=== PATIENT | female | born 1950 | race African-American/Black ===

== ENCOUNTER 2016-12-29 04:21 | Emergency (ER) | payer MEDICARE, OTHER ==
[2016-12-29 06:12] LABS: ABSOLUTE BASOPHILS # (AUTO) 0.1 10^3/uL (0.0-0.2); ABSOLUTE EOSINOPHILS # (AUTO) 0.1 10^3/uL (0.0-0.6); ABSOLUTE LYMPHOCYTES (AUTO) 1.8 10^3/uL (0.5-4.7); ABSOLUTE NEUT (AUTO) 7.2 10^3/uL (1.7-8.2); BASOPHILS % (AUTO) 0.9 % (0-2); EOSINOPHILS % (AUTO) 1.4 % (0-6); HEMATOCRIT 32.2 % (36.0-47.0); HEMOGLOBIN 10.4 g/dL (12.0-15.5); LYMPHOCYTES % (AUTO) 17.4 % (13-45); MEAN CORPUSCULAR HEMOGLOBIN 26.3 pg (27.0-33.4); MEAN CORPUSCULAR HGB CONC 32.2 g/dL (32.0-36.0); MEAN CORPUSCULAR VOLUME 82 fl (80-97); MONOCYTES % (AUTO) 9.8 % (3-13); RED BLOOD COUNT 3.94 10^6/uL (3.72-5.28); RED CELL DISTRIBUTION WIDTH 14.7 % (11.5-14.0); SEGMENTED NEUTROPHILS % (AUTO) 70.5 % (42-78); WHITE BLOOD COUNT 10.3 10^3/uL (4.0-10.5)
[2016-12-29 06:32] LABS: ALANINE AMINOTRANSFERASE 34 U/L (9-52); ALBUMIN 3.5 g/dL (3.5-5.0); ALKALINE PHOSPHATASE 101 U/L (38-126); ANION GAP 13 (5-19); ASPARTATE AMINO TRANSFERASE 26 U/L (14-36); BILIRUBIN,TOTAL 0.4 mg/dL (0.2-1.3); BLOOD UREA NITROGEN 18 mg/dL (7-20); CALCIUM 9.7 mg/dL (8.4-10.2); CARBON DIOXIDE 23 mmol/L (22-30); CHLORIDE 104 mmol/L (98-107); CREATINE KINASE 121 U/L (30-135); CREATININE RESULT 0.72 mg/dL (0.52-1.25); GLUCOSE 124 mg/dL (75-110); POTASSIUM 4.1 mmol/L (3.6-5.0); SODIUM 140.2 mmol/L (137-145)
[2016-12-29 06:44] LABS: CREATINE KINASE MB 5.61 ng/mL (<4.55)
[2016-12-29 06:46] LABS: TROPONIN I 0.539 ng/mL
[2016-12-29] MEDS ORDERED: NORMAL SALINE 1000 ML 1,000 ML IV ONE (06:56)
[2016-12-29] MEDS ORDERED: NORMAL SALINE 1000 ML 500 ML IV ONE (06:56)
[2016-12-29 07:09] LABS: PROTHROMBIN TIME 14.2 SEC (11.4-15.4)
[2016-12-29 07:10] LABS: PARTIAL THROMBOPLASTIN TIME 34.4 SEC (23.5-35.8)
[2016-12-29] MEDS ORDERED: HEPARIN SODIUM,PORCINE/D5W 250 ML IV PRN (08:14)
[2016-12-29] MEDS ORDERED: NITROGLYCERIN 2% OINTMENT 1 GM PACKET TP ONE (08:14)
[2016-12-29] MEDS ORDERED: HEPARIN SOD (PORCINE) 1,000 UNIT/ML 10 ML VIAL IV ONE (08:14)
[2016-12-29] MEDS ORDERED: HEPARIN SOD (PORCINE) 1,000 UNIT/ML 10 ML VIAL IV PRN (08:14)
[2016-12-29] MEDS ORDERED: MORPHINE SULFATE 10 MG/ML INJ IV ONE ×2 (09:57→11:34)
--- NOTE | 2016-12-29 10:51 | EKG REPORT ---
SEVERITY:- NORMAL ECG - SINUS RHYTHM : Confirmed by: Alex Mae 29-Dec-2016 10:49:38
--- NOTE | 2016-12-29 10:51 | EKG REPORT ---
SEVERITY:- NORMAL ECG - SINUS RHYTHM : Confirmed by: Alex Mae 29-Dec-2016 10:49:46
[2016-12-29] MEDS ORDERED: MAG HYDROX/AL HYDROX/SIMETH SUSP 30 ML UDCUP PO ONE (11:52)
[2016-12-29] MEDS ORDERED: LIDOCAINE 2% VISCOUS SOLN 20 ML UDCUP PO ONE (11:52)
[2016-12-29] MEDS ORDERED: METOCLOPRAMIDE HCL ORAL SOLN 10 MG/10 ML UDCUP PO ONE (11:52)
[2016-12-29] MEDS ORDERED: ASPIRIN 325 MG TABLET PO ONE (13:02)
[2016-12-29] MEDS ORDERED: METOPROLOL TARTRATE 25 MG TABLET PO ONE (13:18)
--- NOTE | 2016-12-29 13:20 | ER Document Report ---
ED General - General Chief Complaint: Chest Pain Stated Complaint: CHEST PAIN TRAVEL OUTSIDE OF THE [place] IN LAST 30 DAYS: No - HPI Patient complains to provider of: chest pain Notes: Patient's coming in for evaluation of chest pain. Patient has a history of uterine cancer and is being evaluated at [facility] for her cancer. Patient also states a history of hypertension. Patient states chest pain started this morning around 3 or 4:00 left side of her chest left upper back going down the left arm. Denies any nausea vomiting fevers chills. Patient's currently states chest pain-free chest pain resolved prior to my evaluation. Patient does have a history of recent surgery and of October with currently a wound VAC due to competitions of the surgery. Patient otherwise denies fevers chills patient denies any recent antibiotics. Patient is resting currently upon my evaluation. - Related Data Allergies/Adverse Reactions: No Known Allergies Allergy (Unverified 12/29/16 04:43) Home Medications: Current Home Medications Amlodipine Besylate 5 mg PO DAILY 12/29/16 [History] Famotidine 20 mg PO BID 12/29/16 [History] Hydrochlorothiazide 25 mg PO DAILY 12/29/16 [History] Loratadine [Claritin] 10 mg PO DAILY 12/29/16 [History] Meclizine HCl 25 mg PO TID 12/29/16 [History] Ondansetron [Zofran Odt] 8 mg PO Q8H 12/29/16 [History] Oxycodone HCl 5 mg PO Q4H PRN 12/29/16 [History] Prochlorperazine Maleate 10 mg PO Q6H PRN 12/29/16 [History] Past Medical History - Social History Smoking Status: Never Smoker Chew tobacco use (# tins/day): No Frequency of alcohol use: None Drug Abuse: None Family History: Reviewed & Not Pertinent Patient has suicidal ideation: No Patient has homicidal ideation: No Renal/ Medical History: Denies: Hx Peritoneal Dialysis Past Surgical History: Reports: Hx Hysterectomy Review of Systems - Review of Systems Constitutional: No symptoms reported EENT: No symptoms reported Cardiovascular: Chest pain Respiratory: No symptoms reported Gastrointestinal: No symptoms reported Genitourinary: No symptoms reported Female Genitourinary: No symptoms reported Musculoskeletal: No symptoms reported Skin: No symptoms reported Hematologic/Lymphatic: No symptoms reported Neurological/Psychological: No symptoms reported -: Yes All other systems reviewed and negative Physical Exam - Vital signs Vitals: Temp Pulse Resp BP Pulse Ox 97.9 F 86 24 H 151/92 H 97 12/29/16 04:30 12/29/16 04:30 12/29/16 04:30 12/29/16 04:30 12/29/16 04:30 Interpretation: Normal - General General appearance: Appears well, Alert - HEENT Head: Normocephalic, Atraumatic Eyes: Normal Pupils: PERRL - Respiratory Respiratory status: No respiratory distress Chest status: Nontender Breath sounds: Normal Chest palpation: Normal - Cardiovascular Rhythm: Regular Heart sounds: Normal auscultation Murmur: No - Abdominal Inspection: Normal Distension: No distension Bowel sounds: Normal Tenderness: Tender - Appropriate tenderness around surgical wound. Patient does have a wound VAC in place wound edges look well-healed Organomegaly: No organomegaly - Back Back: Normal, Tender - Tenderness to palpation along the left shoulder blade - Extremities General upper extremity: Normal inspection, Nontender, Normal color, Normal ROM , Normal temperature General lower extremity: Normal inspection, Nontender, Normal color, Normal ROM , Normal temperature, Normal weight bearing. No: Rosanna's sign - Neurological Neuro grossly intact: Yes Cognition: Normal Orientation: AAOx4 Jeevan Coma Scale Eye Opening: Spontaneous Jeevan Coma Scale Verbal: Oriented [place] Coma Scale Motor: Obeys Commands Jeevan Coma Scale Total: 15 Speech: Normal Motor strength normal: LUE, RUE, LLE, RLE Sensory: Normal - Psychological Associated symptoms: Normal affect, Normal mood - Skin Skin Temperature: Warm Skin Moisture: Dry Skin Color: Normal Course - Re-evaluation Re-evalutation: 12/29/16 13:18 Patient case was updated with Dr. Petersen cardiology at [facility]. Will continue heparin drip Nitropaste and aspirin at this time will hold off on any Plavix therapy. 12/29/16 14:34 Patient coming in for evaluation of chest pain. Initial EKG did not show any signs of acute ischemia. Patient initial troponin was elevated. This facility 0.5. Patient underwent a CTA of her chest due to recent surgery which was negative. Patient was started on a heparin drip this was preferred over Lovenox as that the patient currently has a surgical wound. Initially was given report patient received full dose aspirin upon reevaluation patient admits that she only took a baby aspirin. Therefore full aspirin therapy was initiated. After discussion with [facility] patient began to have chest pressure and not pain. Patient was given Nitropaste with no relief morphine with no relief. Patient was then given a GI cocktail with a repeat troponin showing elevation. Multiple other EKGs were performed still showing no signs of change. 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 At this time will hold off on Plavix therapy due to recent surgery. I did transition the patient over to a nitro drip patient was also given a dose of metoprolol. Upon last evaluation patient feeling much better. 12/29/16 14:35 12/29/16 15:51 Patient was reevaluated. Patient continues to be on nitro drip. EKG was repeated still showing no changes. Patient otherwise stable for transfer to [facility] - Vital Signs Vital signs: Temp Pulse Resp BP Pulse Ox 98.4 F 86 18 186/108 H 97 12/29/16 09:12 12/29/16 04:30 12/29/16 15:11 12/29/16 15:11 12/29/16 13:31 - Laboratory Result Diagrams: 12/29/16 05:52 12/29/16 05:52 Laboratory results interpreted by me: 12/29/16 12/29/16 12/29/16 05:52 05:52 05:52 Hgb 10.4 L Hct 32.2 L MCH 26.3 L RDW 14.7 H Plt Count 455 H Glucose 124 H CK-MB (CK-2) 5.61 H Critical Care Note - Critical Care Note Total time excluding time spent on procedures (mins): 35 Comments: Multiple evaluations 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
[2016-12-29] MEDS ORDERED: NITROGLYCERIN/D5W 250 ML IV PRN (13:21)
[2016-12-29] MEDS ORDERED: MORPHINE SULFATE 10 MG/ML INJ IV PRN (15:23)
[2016-12-29] MEDS ORDERED: ONDANSETRON HCL INJ/PF 4 MG/2 ML SDV IV PRN (15:23)
[2016-12-29] MEDS ORDERED: LABETALOL HCL INJ 20 MG/4 ML DISP.SYRIN IV ONE (15:26)
[2016-12-29 15:56] VITALS: BP 169/100
--- NOTE | 2016-12-30 20:07 | EKG REPORT ---
SEVERITY:- NORMAL ECG - SINUS RHYTHM : Confirmed by: Alex Mae 30-Dec-2016 20:06:41
--- NOTE | 2016-12-30 20:07 | EKG REPORT ---
SEVERITY:- NORMAL ECG - SINUS RHYTHM : Confirmed by: Alex Mae 30-Dec-2016 20:06:35
== END 2016-12-29 16:29 | disposition short-term general hospital (02) ==
LOC: ER 04:21
DX: I21.4 Non-ST elevation (NSTEMI) myocardial infarction (principal); Z85.9 Personal history of malignant neoplasm, unspecified; M54.6 Pain in thoracic spine; R07.9 Chest pain, unspecified; Z79.899 Other long term (current) drug therapy
CPT/HCPCS: 93005; 99291; 36415; 82553; 82550; 85025; 85610; 85730; 80053; 84484; 71275; 93010; J1644 ×2; A9270 ×4; J3490 ×2; J2270; J7030

== ENCOUNTER → 2017-01-25 | Outpatient (CLI) | payer MEDICARE, OTHER ==
[2017-01-25 14:40] LABS: ABSOLUTE EOSINOPHILS # (AUTO) 0.1 10^3/uL (0.0-0.6); ABSOLUTE LYMPHOCYTES (AUTO) 1.4 10^3/uL (0.5-4.7); ABSOLUTE MONOCYTES (AUTO) 0.5 10^3/uL (0.1-1.4); BASOPHILS % (AUTO) 0.5 % (0-2); EOSINOPHILS % (AUTO) 2.9 % (0-6); HEMATOCRIT 31.9 % (36.0-47.0); HEMOGLOBIN 10.4 g/dL (12.0-15.5); HGB HCT DIFFERENCE -0.7; LYMPHOCYTES % (AUTO) 46.8 % (13-45); MEAN CORPUSCULAR HGB CONC 32.6 g/dL (32.0-36.0); MEAN CORPUSCULAR VOLUME 83 fl (80-97); RED BLOOD COUNT 3.85 10^6/uL (3.72-5.28); SEGMENTED NEUTROPHILS % (AUTO) 32.8 % (42-78)
== END ==
LOC: LAB 13:53
PROVIDERS: ATTEND Obstetrics & Gynecology Gynecologic Oncology
DX: C55 Malignant neoplasm of uterus, part unspecified (principal)
CPT/HCPCS: 36415; 85025

== ENCOUNTER → 2017-02-01 | Outpatient (CLI) | payer MEDICARE, OTHER ==
[2017-02-01 12:59] LABS: ABSOLUTE BASOPHILS # (AUTO) 0.1 10^3/uL (0.0-0.2); ABSOLUTE EOSINOPHILS # (AUTO) 0.1 10^3/uL (0.0-0.6); ABSOLUTE LYMPHOCYTES (AUTO) 1.8 10^3/uL (0.5-4.7); ABSOLUTE MONOCYTES (AUTO) 1.3 10^3/uL (0.1-1.4); ABSOLUTE NEUT (AUTO) 3.9 10^3/uL (1.7-8.2); BASOPHILS % (AUTO) 0.8 % (0-2); EOSINOPHILS % (AUTO) 0.9 % (0-6); HEMOGLOBIN 10.3 g/dL (12.0-15.5); HGB HCT DIFFERENCE -0.1; LYMPHOCYTES % (AUTO) 25.5 % (13-45); MEAN CORPUSCULAR HEMOGLOBIN 27.2 pg (27.0-33.4); MEAN CORPUSCULAR HGB CONC 33.4 g/dL (32.0-36.0); MEAN CORPUSCULAR VOLUME 81 fl (80-97); MONOCYTES % (AUTO) 18.3 % (3-13); RED BLOOD COUNT 3.81 10^6/uL (3.72-5.28); RED CELL DISTRIBUTION WIDTH 16.7 % (11.5-14.0); SEGMENTED NEUTROPHILS % (AUTO) 54.5 % (42-78); WHITE BLOOD COUNT 7.2 10^3/uL (4.0-10.5)
[2017-02-01 13:16] LABS: ALANINE AMINOTRANSFERASE 38 U/L (9-52); ALKALINE PHOSPHATASE 94 U/L (38-126); ANION GAP 13 (5-19); ASPARTATE AMINO TRANSFERASE 28 U/L (14-36); BILIRUBIN,DIRECT 0.1 mg/dL (0.0-0.4); BILIRUBIN,TOTAL 0.3 mg/dL (0.2-1.3); BLOOD UREA NITROGEN 18 mg/dL (7-20); CALCIUM 9.6 mg/dL (8.4-10.2); CARBON DIOXIDE 25 mmol/L (22-30); CHLORIDE 108 mmol/L (98-107); CREATININE RESULT 0.75 mg/dL (0.52-1.25); GLUCOSE 98 mg/dL (75-110); MAGNESIUM 1.9 mg/dL (1.6-2.3); PHOSPHORUS 4.5 mg/dL (2.5-4.5); SODIUM 146.1 mmol/L (137-145); TOTAL PROTEIN 7.1 g/dL (6.3-8.2)
== END ==
LOC: LAB 12:37
PROVIDERS: ATTEND Obstetrics & Gynecology Gynecologic Oncology
DX: C55 Malignant neoplasm of uterus, part unspecified (principal)
CPT/HCPCS: 36415; 80053; 83735; 84100; 85025

== ENCOUNTER → 2017-02-15 | Outpatient (CLI) | payer MEDICARE, OTHER ==
[2017-02-15 13:24] LABS: ABSOLUTE LYMPHOCYTES (AUTO) 1.3 10^3/uL (0.5-4.7); ABSOLUTE MONOCYTES (AUTO) 0.5 10^3/uL (0.1-1.4); BASOPHILS % (AUTO) 0.3 % (0-2); EOSINOPHILS % (AUTO) 1.4 % (0-6); HEMATOCRIT 30.1 % (36.0-47.0); HEMOGLOBIN 9.9 g/dL (12.0-15.5); HGB HCT DIFFERENCE -0.4; LYMPHOCYTES % (AUTO) 44.9 % (13-45); MEAN CORPUSCULAR HEMOGLOBIN 26.5 pg (27.0-33.4); MEAN CORPUSCULAR HGB CONC 32.8 g/dL (32.0-36.0); MEAN CORPUSCULAR VOLUME 81 fl (80-97); MONOCYTES % (AUTO) 18.6 % (3-13); RED BLOOD COUNT 3.73 10^6/uL (3.72-5.28); RED CELL DISTRIBUTION WIDTH 17.3 % (11.5-14.0); SEGMENTED NEUTROPHILS % (AUTO) 34.8 % (42-78)
== END ==
LOC: LAB 13:11
PROVIDERS: ATTEND Obstetrics & Gynecology Gynecologic Oncology
DX: C55 Malignant neoplasm of uterus, part unspecified (principal)
CPT/HCPCS: 36415; 85025

== ENCOUNTER → 2017-02-22 | Outpatient (CLI) | payer MEDICARE, OTHER ==
[2017-02-22 16:27] LABS: ABSOLUTE LYMPHOCYTES (AUTO) 1.3 10^3/uL (0.5-4.7); ABSOLUTE MONOCYTES (AUTO) 0.9 10^3/uL (0.1-1.4); ABSOLUTE NEUT (AUTO) 2.5 10^3/uL (1.7-8.2); BASOPHILS % (AUTO) 0.3 % (0-2); EOSINOPHILS % (AUTO) 0.7 % (0-6); HEMATOCRIT 30.7 % (36.0-47.0); HEMOGLOBIN 9.9 g/dL (12.0-15.5); MEAN CORPUSCULAR HEMOGLOBIN 26.4 pg (27.0-33.4); MEAN CORPUSCULAR HGB CONC 32.3 g/dL (32.0-36.0); MEAN CORPUSCULAR VOLUME 82 fl (80-97); MONOCYTES % (AUTO) 19.1 % (3-13); RED BLOOD COUNT 3.75 10^6/uL (3.72-5.28); RED CELL DISTRIBUTION WIDTH 18.5 % (11.5-14.0); SEGMENTED NEUTROPHILS % (AUTO) 52.9 % (42-78); WHITE BLOOD COUNT 4.8 10^3/uL (4.0-10.5)
[2017-02-22 16:44] LABS: ALANINE AMINOTRANSFERASE 48 U/L (9-52); ALBUMIN 4.1 g/dL (3.5-5.0); ALKALINE PHOSPHATASE 115 U/L (38-126); ANION GAP 15 (5-19); ASPARTATE AMINO TRANSFERASE 39 U/L (14-36); BILIRUBIN,DIRECT 0.2 mg/dL (0.0-0.4); BILIRUBIN,TOTAL 0.3 mg/dL (0.2-1.3); BLOOD UREA NITROGEN 23 mg/dL (7-20); CALCIUM 9.8 mg/dL (8.4-10.2); CARBON DIOXIDE 20 mmol/L (22-30); CHLORIDE 106 mmol/L (98-107); CREATININE RESULT 1.32 mg/dL (0.52-1.25); GLUCOSE 117 mg/dL (75-110); MAGNESIUM 1.4 mg/dL (1.6-2.3); PHOSPHORUS 4.5 mg/dL (2.5-4.5); POTASSIUM 4.8 mmol/L (3.6-5.0); SODIUM 140.8 mmol/L (137-145); TOTAL PROTEIN 7.6 g/dL (6.3-8.2)
== END ==
LOC: LAB 16:05
PROVIDERS: ATTEND Obstetrics & Gynecology Gynecologic Oncology
DX: C55 Malignant neoplasm of uterus, part unspecified (principal)
CPT/HCPCS: 36415; 80053; 83735; 84100; 85025

== ENCOUNTER → 2017-03-01 | Outpatient (CLI) | payer MEDICARE, OTHER ==
[2017-03-01 12:27] LABS: ABSOLUTE EOSINOPHILS # (AUTO) 0.1 10^3/uL (0.0-0.6); ABSOLUTE LYMPHOCYTES (AUTO) 1.4 10^3/uL (0.5-4.7); ABSOLUTE MONOCYTES (AUTO) 0.2 10^3/uL (0.1-1.4); ABSOLUTE NEUT (AUTO) 1.4 10^3/uL (1.7-8.2); BASOPHILS % (AUTO) 0.5 % (0-2); HEMATOCRIT 31.8 % (36.0-47.0); HEMOGLOBIN 10.6 g/dL (12.0-15.5); LYMPHOCYTES % (AUTO) 45.8 % (13-45); MEAN CORPUSCULAR HGB CONC 33.3 g/dL (32.0-36.0); MEAN CORPUSCULAR VOLUME 81 fl (80-97); MONOCYTES % (AUTO) 5.6 % (3-13); RED BLOOD COUNT 3.92 10^6/uL (3.72-5.28); SEGMENTED NEUTROPHILS % (AUTO) 46.1 % (42-78)
== END ==
LOC: LAB 12:13
PROVIDERS: ATTEND Obstetrics & Gynecology Gynecologic Oncology
DX: C55 Malignant neoplasm of uterus, part unspecified (principal); Z92.21 Personal history of antineoplastic chemotherapy
CPT/HCPCS: 36415; 85025

== ENCOUNTER → 2017-03-08 | Outpatient (CLI) | payer MEDICARE, OTHER ==
[2017-03-08 15:56] LABS: ABSOLUTE LYMPHOCYTES (AUTO) 1.9 10^3/uL (0.5-4.7); ABSOLUTE MONOCYTES (AUTO) 0.6 10^3/uL (0.1-1.4); BASOPHILS % (AUTO) 0.3 % (0-2); EOSINOPHILS % (AUTO) 0.9 % (0-6); HEMOGLOBIN 10.2 g/dL (12.0-15.5); HGB HCT DIFFERENCE -1.4; MEAN CORPUSCULAR HEMOGLOBIN 26.7 pg (27.0-33.4); MEAN CORPUSCULAR VOLUME 84 fl (80-97); RED BLOOD COUNT 3.83 10^6/uL (3.72-5.28); RED CELL DISTRIBUTION WIDTH 18.2 % (11.5-14.0); SEGMENTED NEUTROPHILS % (AUTO) 28.8 % (42-78); WHITE BLOOD COUNT 3.5 10^3/uL (4.0-10.5)
== END ==
LOC: LAB 15:20
PROVIDERS: ATTEND Obstetrics & Gynecology Gynecologic Oncology
DX: C55 Malignant neoplasm of uterus, part unspecified (principal)
CPT/HCPCS: 36415; 85025

== ENCOUNTER → 2017-03-15 | Outpatient (CLI) | payer MEDICARE, OTHER ==
[2017-03-15 09:15] LABS: HEMATOCRIT 29.8 % (36.0-47.0); HEMOGLOBIN 9.7 g/dL (12.0-15.5); HGB HCT DIFFERENCE -0.7; MEAN CORPUSCULAR HGB CONC 32.6 g/dL (32.0-36.0); MEAN CORPUSCULAR VOLUME 83 fl (80-97); RED BLOOD COUNT 3.61 10^6/uL (3.72-5.28); WHITE BLOOD COUNT 4.1 10^3/uL (4.0-10.5)
[2017-03-15 09:33] LABS: ALANINE AMINOTRANSFERASE 41 U/L (9-52); ALBUMIN 3.9 g/dL (3.5-5.0); ALKALINE PHOSPHATASE 96 U/L (38-126); ANION GAP 13 (5-19); ASPARTATE AMINO TRANSFERASE 31 U/L (14-36); BILIRUBIN,DIRECT 0.2 mg/dL (0.0-0.4); BILIRUBIN,TOTAL 0.2 mg/dL (0.2-1.3); BLOOD UREA NITROGEN 15 mg/dL (7-20); CALCIUM 9.5 mg/dL (8.4-10.2); CARBON DIOXIDE 24 mmol/L (22-30); CHLORIDE 108 mmol/L (98-107); CREATININE RESULT 0.83 mg/dL (0.52-1.25); GLUCOSE 89 mg/dL (75-110); MAGNESIUM 1.3 mg/dL (1.6-2.3); PHOSPHORUS 3.9 mg/dL (2.5-4.5); POTASSIUM 3.6 mmol/L (3.6-5.0); SODIUM 145.3 mmol/L (137-145); TOTAL PROTEIN 6.9 g/dL (6.3-8.2)
[2017-03-15 09:54] LABS: BASOPHILS % (MANUAL) 0 % (0-2); EOSINOPHILS % (MANUAL) 0 % (0-6); LYMPHOCYTES % (MANUAL) 39 % (13-45); TOTAL CELLS COUNTED 100
[2017-03-15 09:55] LABS: ANISOCYTOSIS 2+; POLYCHROMASIA SLIGHT
== END ==
LOC: LAB 08:54
PROVIDERS: ATTEND Obstetrics & Gynecology Gynecologic Oncology
DX: C55 Malignant neoplasm of uterus, part unspecified (principal)
CPT/HCPCS: 36415; 80053; 83735; 84100; 85025

== ENCOUNTER → 2017-03-22 | Outpatient (CLI) | payer MEDICARE, OTHER ==
[2017-03-22 12:50] LABS: ABSOLUTE LYMPHOCYTES (AUTO) 1.4 10^3/uL (0.5-4.7); ABSOLUTE MONOCYTES (AUTO) 0.4 10^3/uL (0.1-1.4); ABSOLUTE NEUT (AUTO) 2.7 10^3/uL (1.7-8.2); BASOPHILS % (AUTO) 0.5 % (0-2); EOSINOPHILS % (AUTO) 0.1 % (0-6); HEMATOCRIT 29.1 % (36.0-47.0); HEMOGLOBIN 9.4 g/dL (12.0-15.5); HGB HCT DIFFERENCE -0.9; LYMPHOCYTES % (AUTO) 29.9 % (13-45); MEAN CORPUSCULAR HEMOGLOBIN 27.5 pg (27.0-33.4); MEAN CORPUSCULAR HGB CONC 32.4 g/dL (32.0-36.0); MEAN CORPUSCULAR VOLUME 85 fl (80-97); MONOCYTES % (AUTO) 9.6 % (3-13); RED BLOOD COUNT 3.43 10^6/uL (3.72-5.28); RED CELL DISTRIBUTION WIDTH 20.4 % (11.5-14.0); SEGMENTED NEUTROPHILS % (AUTO) 59.9 % (42-78); WHITE BLOOD COUNT 4.6 10^3/uL (4.0-10.5)
== END ==
LOC: LAB 12:34
PROVIDERS: ATTEND Obstetrics & Gynecology Gynecologic Oncology
DX: C55 Malignant neoplasm of uterus, part unspecified (principal)
CPT/HCPCS: 36415; 85025

== ENCOUNTER → 2017-03-29 | Outpatient (CLI) | payer MEDICARE, OTHER ==
[2017-03-29 14:35] LABS: HEMATOCRIT 32.2 % (36.0-47.0); HEMOGLOBIN 10.7 g/dL (12.0-15.5); HGB HCT DIFFERENCE -0.1; MEAN CORPUSCULAR HGB CONC 33.3 g/dL (32.0-36.0); MEAN CORPUSCULAR VOLUME 84 fl (80-97); RED BLOOD COUNT 3.83 10^6/uL (3.72-5.28); RED CELL DISTRIBUTION WIDTH 19.8 % (11.5-14.0); WHITE BLOOD COUNT 2.4 10^3/uL (4.0-10.5)
[2017-03-29 15:07] LABS: BASOPHILS % (MANUAL) 0 % (0-2); EOSINOPHILS % (MANUAL) 0 % (0-6); LYMPHOCYTES % (MANUAL) 58 % (13-45); NUCLEATED RED BLOOD CELLS 2 /100 WBC (0); TOTAL CELLS COUNTED 100
[2017-03-29 15:14] LABS: ANISOCYTOSIS 2+; OVALOCYTES SLIGHT; POLYCHROMASIA SLIGHT; TARGET CELLS SLIGHT; TEAR DROP CELLS SLIGHT
[2017-03-29 15:15] LABS: PLATELET CLUMPS PRESENT
== END ==
LOC: LAB 14:18
PROVIDERS: ATTEND Obstetrics & Gynecology Gynecologic Oncology
DX: C55 Malignant neoplasm of uterus, part unspecified (principal)
CPT/HCPCS: 36415; 85025

== ENCOUNTER → 2017-04-05 | Outpatient (CLI) | payer MEDICARE, OTHER ==
[2017-04-05 16:27] LABS: HEMATOCRIT 35.4 % (36.0-47.0); HEMOGLOBIN 11.3 g/dL (12.0-15.5); HGB HCT DIFFERENCE -1.5; MEAN CORPUSCULAR HEMOGLOBIN 27.8 pg (27.0-33.4); MEAN CORPUSCULAR VOLUME 87 fl (80-97); RED BLOOD COUNT 4.08 10^6/uL (3.72-5.28); RED CELL DISTRIBUTION WIDTH 21.7 % (11.5-14.0); WHITE BLOOD COUNT 3.9 10^3/uL (4.0-10.5)
[2017-04-05 16:43] LABS: ALANINE AMINOTRANSFERASE 38 U/L (9-52); ALBUMIN 4.1 g/dL (3.5-5.0); ALKALINE PHOSPHATASE 75 U/L (38-126); ANION GAP 13 (5-19); ASPARTATE AMINO TRANSFERASE 28 U/L (14-36); BILIRUBIN,DIRECT 0.3 mg/dL (0.0-0.4); BILIRUBIN,TOTAL 0.3 mg/dL (0.2-1.3); BLOOD UREA NITROGEN 15 mg/dL (7-20); CALCIUM 9.9 mg/dL (8.4-10.2); CARBON DIOXIDE 27 mmol/L (22-30); CHLORIDE 105 mmol/L (98-107); CREATININE RESULT 0.86 mg/dL (0.52-1.25); GLUCOSE 90 mg/dL (75-110); MAGNESIUM 1.4 mg/dL (1.6-2.3); SODIUM 144.5 mmol/L (137-145); TOTAL PROTEIN 7.6 g/dL (6.3-8.2)
[2017-04-05 16:47] LABS: BASOPHILS % (MANUAL) 0 % (0-2); EOSINOPHILS % (MANUAL) 0 % (0-6); LYMPHOCYTES % (MANUAL) 45 % (13-45); TOTAL CELLS COUNTED 100
[2017-04-05 16:51] LABS: ANISOCYTOSIS 3+; OVALOCYTES SLIGHT; PLATELET CLUMPS PRESENT; POIKILOCYTOSIS SLIGHT; POLYCHROMASIA SLIGHT; TARGET CELLS SLIGHT; TEAR DROP CELLS SLIGHT
== END ==
LOC: LAB 16:15
PROVIDERS: ATTEND Obstetrics & Gynecology Gynecologic Oncology
DX: C55 Malignant neoplasm of uterus, part unspecified (principal)
CPT/HCPCS: 36415; 80053; 83735; 84100; 85025

== ENCOUNTER → 2017-04-08 | Outpatient (CLI) | payer MEDICARE, OTHER ==
[2017-04-08 14:38] LABS: ABSOLUTE LYMPHOCYTES (AUTO) 1.6 10^3/uL (0.5-4.7); ABSOLUTE MONOCYTES (AUTO) 0.8 10^3/uL (0.1-1.4); ABSOLUTE NEUT (AUTO) 1.7 10^3/uL (1.7-8.2); BASOPHILS % (AUTO) 0.3 % (0-2); EOSINOPHILS % (AUTO) 0.4 % (0-6); HEMOGLOBIN 11.2 g/dL (12.0-15.5); HGB HCT DIFFERENCE -1.4; LYMPHOCYTES % (AUTO) 39.8 % (13-45); MEAN CORPUSCULAR HEMOGLOBIN 27.9 pg (27.0-33.4); MEAN CORPUSCULAR HGB CONC 32.1 g/dL (32.0-36.0); MEAN CORPUSCULAR VOLUME 87 fl (80-97); RED BLOOD COUNT 4.03 10^6/uL (3.72-5.28); RED CELL DISTRIBUTION WIDTH 22.1 % (11.5-14.0); SEGMENTED NEUTROPHILS % (AUTO) 40.5 % (42-78); WHITE BLOOD COUNT 4.1 10^3/uL (4.0-10.5)
[2017-04-08 15:06] LABS: ALANINE AMINOTRANSFERASE 34 U/L (9-52); ALBUMIN 4.4 g/dL (3.5-5.0); ALKALINE PHOSPHATASE 81 U/L (38-126); ANION GAP 16 (5-19); ASPARTATE AMINO TRANSFERASE 30 U/L (14-36); BILIRUBIN,DIRECT 0.3 mg/dL (0.0-0.4); BILIRUBIN,TOTAL 0.4 mg/dL (0.2-1.3); BLOOD UREA NITROGEN 26 mg/dL (7-20); CALCIUM 10.2 mg/dL (8.4-10.2); CARBON DIOXIDE 22 mmol/L (22-30); CHLORIDE 105 mmol/L (98-107); CREATININE RESULT 0.88 mg/dL (0.52-1.25); GLUCOSE 92 mg/dL (75-110); MAGNESIUM 1.4 mg/dL (1.6-2.3); PHOSPHORUS 5.7 mg/dL (2.5-4.5); POTASSIUM 4.6 mmol/L (3.6-5.0); TOTAL PROTEIN 8.1 g/dL (6.3-8.2)
== END ==
LOC: LAB 14:19
PROVIDERS: ATTEND Obstetrics & Gynecology Gynecologic Oncology
DX: C55 Malignant neoplasm of uterus, part unspecified (principal)
CPT/HCPCS: 36415; 80053; 83735; 84100; 85025

== ENCOUNTER → 2017-04-12 | Outpatient (CLI) | payer MEDICARE, OTHER ==
[2017-04-12 13:40] LABS: ABSOLUTE LYMPHOCYTES (AUTO) 1.3 10^3/uL (0.5-4.7); ABSOLUTE MONOCYTES (AUTO) 0.1 10^3/uL (0.1-1.4); ABSOLUTE NEUT (AUTO) 1.7 10^3/uL (1.7-8.2); BASOPHILS % (AUTO) 1.2 % (0-2); EOSINOPHILS % (AUTO) 0.5 % (0-6); HEMATOCRIT 31.7 % (36.0-47.0); HEMOGLOBIN 10.3 g/dL (12.0-15.5); HGB HCT DIFFERENCE -0.8; LYMPHOCYTES % (AUTO) 41.6 % (13-45); MEAN CORPUSCULAR HEMOGLOBIN 28.3 pg (27.0-33.4); MEAN CORPUSCULAR HGB CONC 32.5 g/dL (32.0-36.0); MEAN CORPUSCULAR VOLUME 87 fl (80-97); MONOCYTES % (AUTO) 4.5 % (3-13); RED BLOOD COUNT 3.65 10^6/uL (3.72-5.28); SEGMENTED NEUTROPHILS % (AUTO) 52.2 % (42-78); WHITE BLOOD COUNT 3.2 10^3/uL (4.0-10.5)
== END ==
LOC: LAB 13:25
PROVIDERS: ATTEND Obstetrics & Gynecology Gynecologic Oncology
DX: C55 Malignant neoplasm of uterus, part unspecified (principal)
CPT/HCPCS: 36415; 85025

== ENCOUNTER → 2017-04-22 | Outpatient (CLI) | payer MEDICARE, OTHER ==
[2017-04-22 11:02] LABS: HEMATOCRIT 30.1 % (36.0-47.0); HEMOGLOBIN 9.6 g/dL (12.0-15.5); HGB HCT DIFFERENCE -1.3; MEAN CORPUSCULAR HEMOGLOBIN 28.4 pg (27.0-33.4); MEAN CORPUSCULAR HGB CONC 31.9 g/dL (32.0-36.0); MEAN CORPUSCULAR VOLUME 89 fl (80-97); RED BLOOD COUNT 3.38 10^6/uL (3.72-5.28); RED CELL DISTRIBUTION WIDTH 21.5 % (11.5-14.0); WHITE BLOOD COUNT 2.6 10^3/uL (4.0-10.5)
[2017-04-22 11:43] LABS: BASOPHILS % (MANUAL) 0 % (0-2); EOSINOPHILS % (MANUAL) 0 % (0-6); LYMPHOCYTES % (MANUAL) 40 % (13-45); NUCLEATED RED BLOOD CELLS 3 /100 WBC (0); TOTAL CELLS COUNTED 100
[2017-04-22 11:48] LABS: ANISOCYTOSIS 3+; OVALOCYTES SLIGHT; PLATELET CLUMPS PRESENT; POLYCHROMASIA SLIGHT; TEAR DROP CELLS SLIGHT; TOXIC GRANULATION SLIGHT
[2017-04-22 11:50] LABS: POIKILOCYTOSIS SLIGHT
[2017-04-24 16:25] LABS: PATH REVIEW PATHOLOGIST REVIEWED
== END ==
LOC: LAB 10:42
PROVIDERS: ATTEND Obstetrics & Gynecology Gynecologic Oncology
DX: C55 Malignant neoplasm of uterus, part unspecified (principal)
CPT/HCPCS: 36415; 85025

== ENCOUNTER → 2017-04-29 | Outpatient (CLI) | payer MEDICARE, OTHER ==
[2017-04-29 10:41] LABS: ABSOLUTE LYMPHOCYTES (AUTO) 1.4 10^3/uL (0.5-4.7); ABSOLUTE MONOCYTES (AUTO) 0.7 10^3/uL (0.1-1.4); ABSOLUTE NEUT (AUTO) 2.2 10^3/uL (1.7-8.2); BASOPHILS % (AUTO) 0.9 % (0-2); EOSINOPHILS % (AUTO) 0.1 % (0-6); HEMATOCRIT 31.3 % (36.0-47.0); HEMOGLOBIN 10.1 g/dL (12.0-15.5); MEAN CORPUSCULAR HGB CONC 32.2 g/dL (32.0-36.0); MEAN CORPUSCULAR VOLUME 90 fl (80-97); RED BLOOD COUNT 3.47 10^6/uL (3.72-5.28); RED CELL DISTRIBUTION WIDTH 21.7 % (11.5-14.0); WHITE BLOOD COUNT 4.3 10^3/uL (4.0-10.5)
[2017-04-29 10:49] LABS: ALANINE AMINOTRANSFERASE 43 U/L (9-52); ALKALINE PHOSPHATASE 80 U/L (38-126); ANION GAP 13 (5-19); ASPARTATE AMINO TRANSFERASE 33 U/L (14-36); BILIRUBIN,DIRECT 0.3 mg/dL (0.0-0.4); BILIRUBIN,TOTAL 0.3 mg/dL (0.2-1.3); BLOOD UREA NITROGEN 14 mg/dL (7-20); CALCIUM 9.5 mg/dL (8.4-10.2); CARBON DIOXIDE 23 mmol/L (22-30); CHLORIDE 106 mmol/L (98-107); CREATININE RESULT 0.71 mg/dL (0.52-1.25); GLUCOSE 105 mg/dL (75-110); MAGNESIUM 1.3 mg/dL (1.6-2.3); PHOSPHORUS 3.8 mg/dL (2.5-4.5); POTASSIUM 3.9 mmol/L (3.6-5.0); SODIUM 141.6 mmol/L (137-145); TOTAL PROTEIN 7.4 g/dL (6.3-8.2)
== END ==
LOC: LAB 10:11
PROVIDERS: ATTEND Obstetrics & Gynecology Gynecologic Oncology
DX: C55 Malignant neoplasm of uterus, part unspecified (principal)
CPT/HCPCS: 36415; 80053; 83735; 84100; 85025

== ENCOUNTER → 2017-07-19 | Outpatient (CLI) | payer MEDICARE, OTHER ==
[2017-07-19 10:52] LABS: ABSOLUTE EOSINOPHILS # (AUTO) 0.1 10^3/uL (0.0-0.6); ABSOLUTE LYMPHOCYTES (AUTO) 1.4 10^3/uL (0.5-4.7); ABSOLUTE MONOCYTES (AUTO) 0.9 10^3/uL (0.1-1.4); ABSOLUTE NEUT (AUTO) 3.4 10^3/uL (1.7-8.2); BASOPHILS % (AUTO) 0.7 % (0-2); EOSINOPHILS % (AUTO) 1.3 % (0-6); HEMOGLOBIN 12.4 g/dL (12.0-15.5); HGB HCT DIFFERENCE 1.2; LYMPHOCYTES % (AUTO) 24.5 % (13-45); MEAN CORPUSCULAR HEMOGLOBIN 32.4 pg (27.0-33.4); MEAN CORPUSCULAR HGB CONC 34.3 g/dL (32.0-36.0); MEAN CORPUSCULAR VOLUME 95 fl (80-97); MONOCYTES % (AUTO) 14.7 % (3-13); RED BLOOD COUNT 3.81 10^6/uL (3.72-5.28); RED CELL DISTRIBUTION WIDTH 15.8 % (11.5-14.0); SEGMENTED NEUTROPHILS % (AUTO) 58.8 % (42-78); WHITE BLOOD COUNT 5.8 10^3/uL (4.0-10.5)
[2017-07-19 11:00] LABS: ABSOLUTE EOSINOPHILS # (AUTO) 0.1 10^3/uL (0.0-0.6); ABSOLUTE LYMPHOCYTES (AUTO) 1.4 10^3/uL (0.5-4.7); ABSOLUTE MONOCYTES (AUTO) 0.9 10^3/uL (0.1-1.4); ABSOLUTE NEUT (AUTO) 3.4 10^3/uL (1.7-8.2); BASOPHILS % (AUTO) 0.7 % (0-2); EOSINOPHILS % (AUTO) 1.3 % (0-6); HEMOGLOBIN 12.4 g/dL (12.0-15.5); HGB HCT DIFFERENCE 1.2; LYMPHOCYTES % (AUTO) 24.5 % (13-45); MEAN CORPUSCULAR HEMOGLOBIN 32.4 pg (27.0-33.4); MEAN CORPUSCULAR HGB CONC 34.3 g/dL (32.0-36.0); MEAN CORPUSCULAR VOLUME 95 fl (80-97); MONOCYTES % (AUTO) 14.7 % (3-13); RED BLOOD COUNT 3.81 10^6/uL (3.72-5.28); RED CELL DISTRIBUTION WIDTH 15.8 % (11.5-14.0); SEGMENTED NEUTROPHILS % (AUTO) 58.8 % (42-78); WHITE BLOOD COUNT 5.8 10^3/uL (4.0-10.5)
[2017-07-19 11:16] LABS: ALANINE AMINOTRANSFERASE 36 U/L (9-52); ALBUMIN 4.2 g/dL (3.5-5.0); ALKALINE PHOSPHATASE 85 U/L (38-126); ANION GAP 11 (5-19); ASPARTATE AMINO TRANSFERASE 26 U/L (14-36); BILIRUBIN,DIRECT 0.4 mg/dL (0.0-0.4); BILIRUBIN,TOTAL 0.5 mg/dL (0.2-1.3); BLOOD UREA NITROGEN 15 mg/dL (7-20); CALCIUM 10.2 mg/dL (8.4-10.2); CARBON DIOXIDE 26 mmol/L (22-30); CHLORIDE 105 mmol/L (98-107); CHOLESTEROL 215.43 mg/dL (0-200); CREATININE RESULT 0.82 mg/dL (0.52-1.25); Direct HDL 48 mg/dL (>40); GLUCOSE 97 mg/dL (75-110); POTASSIUM 4.5 mmol/L (3.6-5.0); SODIUM 142.4 mmol/L (137-145); TOTAL PROTEIN 7.8 g/dL (6.3-8.2); TRIGLYCERIDES 101 mg/dL (<150)
[2017-07-19 11:32] LABS: DIRECT LDL 154 mg/dL (<100)
[2017-07-19 12:24] LABS: APPEARANCE,URINE SLIGHTLY-CLOUDY; BILIRUBIN,URINE NEGATIVE (NEGATIVE); GLUCOSE, URINE NEGATIVE (NEGATIVE); KETONES,URINE NEGATIVE (NEGATIVE); LEUKOCYTE ESTERASE,URINE NEGATIVE (NEGATIVE); NITRITE,URINE NEGATIVE (NEGATIVE); PROTEIN,URINE NEGATIVE (NEGATIVE); URINE SPECIFIC GRAVITY 1.014; UROBILINOGEN,URINE NEGATIVE mg/dL (<2.0)
== END ==
LOC: LAB 10:23
PROVIDERS: ATTEND Obstetrics & Gynecology Gynecologic Oncology
DX: E78.5 Hyperlipidemia, unspecified (principal); I10 Essential (primary) hypertension; N39.0 Urinary tract infection, site not specified; C55 Malignant neoplasm of uterus, part unspecified
CPT/HCPCS: 36415; 80053; 80061; 81001; 85025; 87086

== ENCOUNTER → 2017-07-22 | Outpatient (CLI) | payer MEDICARE, OTHER ==
--- NOTE | 2017-07-22 15:54 | WOMENS IMAGING REPORT ---
EXAM DESCRIPTION: 3D SCREENING MAMMO BILAT COMPLETED DATE/TIME: 07/22/2017 3:06 pm REASON FOR STUDY: ROUTINE SCREENING; Z12.31 Z12.31 ENCNTR SCREEN MAMMOGRAM FOR MALIGNANT NEOPLASM O F [place] COMPARISON: 2010, 2013 TECHNIQUE: Standard craniocaudal and mediolateral oblique views of each breast recorded using digita l acquisition and breast tomosynthesis. LIMITATIONS: None. FINDINGS: No masses, calcifications or architectural distortion. No areas of suspicion. Read with the assistance of CAD. .[facility] - R2 [employer] Version 1.3 .[facility] Imaging - R2 Cenova Version 1.3 .[facility] - R2 Cenova Version 2.4 .[facility] [place] R2 Cenova Version 2.4 .[facility] - R2 [employer] Ce[employer] President Version 9.2 IMPRESSION: NORMAL MAMMOGRAM. BIRADS 1. BREAST DENSITY: b. There are scattered areas of fibroglandular density. BIRAD: 1 NEGATIVE RECOMMENDATION: ROUTINE SCREENING COMMENT: The patient has been notified of the results by letter per SA requirements. Additional no tification policies are in place for contacting patient with suspicious or incomplete findings. Quality ID #[id number]: The [employer] recommends an annual screening mammogram for women aged 40 years or over. This facility utilizes a reminder system to ensure that all patients receive reminder letters, and/or direct phone calls for appointments. This includes reminders for routine scr eening mammograms, diagnostic mammograms, or other Breast Imaging Interventions when appropriate. Th is patient will be placed in the appropriate reminder system. The [employer] (ACR) has developed recommendations for screening MRI of the breast s in certain patient populations, to be used in conjunction with mammography. Breast MRI surveillanc e may be appropriate for women with more than 20% lifetime risk of developing breast cancer as deter mined by genetic testing, significant family history of the disease, or history of mantle radiation f or Hodgkins Disease. ACR Practice Guidelines 2008. DBT Technology DBT is a type of tomographic mammography. With conventional mammography, overlapping breast tissue ma y make lesions difficult to detect, even with good compression. DBT uses an x-ray tube that rotates a round the breast, taking images at different angles. These images are then combined to create thin sl ices of the breast that the radiologist can view as a 3D reconstruction. The [employer] unit can perform full-field digital mammograms (2D imaging); or DBT (3D imaging); or both, in a combination mode that quickly performs both the mammogram and the tomosynthesis scan while the breast is still compressed. PQRS 6045F: Fluoroscopic imaging is not utilized for breast tomosynthesis. TECHNICAL DOCUMENTATION: FINDING NUMBER: (1) ASSESSMENT: (1) JOB ID: [id number] [employer]- All Rights Reserved
== END ==
LOC: WI 14:46
PROVIDERS: ATTEND Internal Medicine Geriatric Medicine
DX: Z12.31 Encounter for screening mammogram for malignant neoplasm of breast (principal)
CPT/HCPCS: 77063; G0202; 77067

== ENCOUNTER 2017-11-09 09:57 | Emergency (ER) | payer MEDICARE, OTHER ==
[2017-11-09] MEDS ORDERED: DEXTROSE 5%-WATER 1000 ML 1,000 ML IV ONE (11:36)
[2017-11-09] MEDS ORDERED: ALPRAZOLAM 0.25 MG TABLET PO ONE (11:42)
--- NOTE | 2017-11-09 11:43 | ER Document Report ---
ED General - General Chief Complaint: Breathing Difficulty Stated Complaint: BLOOD SUGAR PROBLEMS Time Seen by Provider: 11/09/17 10:49 Information source: Patient, Relative - sister Karena Norton TRAVEL OUTSIDE OF THE [place] IN LAST 30 DAYS: No - HPI Patient complains to provider of: anxiety - Related Data Allergies/Adverse Reactions: tree nut Allergy (Verified 11/09/17 10:17) Past Medical History - General Information source: Patient, Relative - Social History Smoking Status: Never Smoker Chew tobacco use (# tins/day): No Frequency of alcohol use: None Drug Abuse: None Family History: Reviewed & Not Pertinent Patient has suicidal ideation: No Patient has homicidal ideation: No - Past Medical History Cardiac Medical History: Reports: Hx Hypertension Pulmonary Medical History: Reports: None EENT Medical History: Reports: None Neurological Medical History: Reports: None Endocrine Medical History: Reports: None Renal/ Medical History: Reports: None. Denies: Hx Peritoneal Dialysis Malignancy Medical History: Reports: Other - Uterine GI Medical History: Reports: None Past Surgical History: Reports: Hx Hysterectomy, Other - Port to the abdominal wall Review of Systems - Review of Systems -: Yes ROS unobtainable due to patient's medical condition Gastrointestinal: Abdomen distended, Abdominal pain Physical Exam - Vital signs Vitals: BP 138/89 H 11/09/17 10:04 - Notes Notes: PHYSICAL EXAMINATION: GENERAL: She appears chronically ill, malnourished, in mild distress. HEAD: Atraumatic, normocephalic. EYES: Pupils equal round and reactive to light, extraocular movements intact, conjunctiva are normal. ENT: Nares patent. Dry mucous membranes. NECK: Normal range of motion, supple without lymphadenopathy LUNGS: Breath sounds clear to auscultation bilaterally and equal. No wheezes rales or rhonchi. HEART: Regular rate and rhythm without murmurs ABDOMEN: Tended with ascites no guarding, no rebound. Female : deferred Musculoskeletal: Moves all extremities spontaneously NEUROLOGICAL: Cranial nerves grossly intact. Normal speech. PSYCH: Normal mood, flat affect. SKIN: Warm decreased skin turgor. No open wounds. Course - Re-evaluation Re-evalutation: 11/09/17 11:41 Patient was alert and oriented 3. Vital signs are stable. I did discuss end- of-life status and she does not want CPR or intubation.I did make her a DNR filled out the form and gave it to her sister for now. Karena as well as 3 other relatives were in the room and were present when I made the patient DNR. 11/09/17 11:43 Patient sister Karena did request that we drain the fluid off of her stomach. She does have a catheter in Karena does it every other day. Today's date have it done. I discussed it with the nurse and she will complete this 11/09/17 14:03 Patient is in pain she is asking for pain medication. She states she takes "oxy " but not sure which kind she does not have it in her medicine bag from home. Her that for her. She is also got some fluids and magnesium. We did drain 300 cc of fluid from her catheter in her abdomen. For now the sister is agreeable to taking home. She has a nurse that she can contact if she needs. She also has hospice coming in Saturday. There is also 5 other women in the room were also related to her and her helping with care. - Vital Signs Vital signs: Temp Pulse Resp BP Pulse Ox 97.7 F 26 H 123/72 100 11/09/17 10:19 11/09/17 13:00 11/09/17 13:00 11/09/17 13:00 - Laboratory Result Diagrams: 11/09/17 10:07 Laboratory results interpreted by me: 11/09/17 10:07 Carbon Dioxide 15 L Calcium 7.4 L Magnesium 1.3 L Discharge - Discharge Clinical Impression: Uterine cancer Condition: Fair Disposition: HOME, SELF-CARE Additional Instructions: Follow-up the hospice nurse on Saturday we discussed. Prescriptions: Alprazolam [Alprazolam Odt] 0.25 mg PO TID 2 Days #10 [email or web address]
[2017-11-09 12:16] LABS: ANION GAP 19 (5-19); BLOOD UREA NITROGEN 17 mg/dL (7-20); CALCIUM 7.4 mg/dL (8.4-10.2); CARBON DIOXIDE 15 mmol/L (22-30); CHLORIDE 104 mmol/L (98-107); GLUCOSE 93 mg/dL (75-110); MAGNESIUM 1.3 mg/dL (1.6-2.3); POTASSIUM 4.3 mmol/L (3.6-5.0); SODIUM 138.3 mmol/L (137-145)
[2017-11-09] MEDS ORDERED: MAGNESIUM SULFATE/D5W 1 GM/100 ML RTUPB IV SCH (13:00)
[2017-11-09] MEDS ORDERED: OXYCODONE HCL IR 5 MG TABLET PO ONE (14:02)
[2017-11-09] MEDS ORDERED: ONDANSETRON HCL INJ/PF 4 MG/2 ML SDV IV ONE (14:28)
[2017-11-09 17:31] VITALS: BP 124/93
== END 2017-11-09 17:31 | disposition home or self-care (01) ==
LOC: ER 09:57
DX: C55 Malignant neoplasm of uterus, part unspecified (principal); R06.02 Shortness of breath
CPT/HCPCS: 99291; 96361; 96374; 36415; 82962; 83735; 80048; A9270 ×2; J3475; J2405; J7060